=== PATIENT | female | born 1975 | race Caucasian/White ===

== ENCOUNTER 2016-12-12 11:41 | Emergency (ER) | payer SELFPAY ==
[2016-12-12 11:51] VITALS: BP 150/80; PULSE 82; TEMP 98
--- NOTE | 2016-12-12 13:00 | PDOC ---
History of Present Illness - General Chief Complaint: Bite Stated Complaint: INSECT BITE Time Seen by Provider: 12/12/16 12:04 History Source: Patient - History of Present Illness Timing/Duration: reports: other Location: reports: extremities Respiratory Risk Factors: reports: insect bite Past History - Past Medical History Allergies/Adverse Reactions: Allergies Allergy/AdvReac Type Severity Reaction Status Date / Time No Known Allergies Allergy Verified 12/12/16 11:51 Home Medications: Ambulatory Orders Multivitamins Tablet PO DAILY 12/17/11 Ibuprofen [Motrin] 600 mg PO Q6H PRN #0 tablet 12/18/11 Clindamycin [Cleocin -] 300 mg PO Q6HPO #28 capsule 12/12/16 Anemia: No Asthma: No Cancer: No Cardiac Disorders: No CVA: No COPD: No CHF: No Dementia: No Diabetes: No GI Disorders: No Disorders: No HTN: No Hypercholesterolemia: No Liver Disease: No Seizures: No Thyroid Disease: No - Surgical History Abdominal Surgery: No Appendectomy: No Cardiac Surgery: No Cholecystectomy: No Lung Surgery: No Neurologic Surgery: No Orthopedic Surgery: No - Psycho/Social/Smoking Cessation Hx Suicidal Ideation: No Smoking History: Never smoked Have you smoked in the past 12 months: No Information on smoking cessation initiated: No Hx Alcohol Use: No Drug/Substance Use Hx: No Substance Use Type: None Hx Substance Use Treatment: No Review of Systems - Review of Systems Constitutional: No: Fever, Malaise Integumentary: Yes: Erythema *Physical Exam - Vital Signs Last Vital Signs Temp Pulse Resp BP Pulse Ox 98 F 82 18 150/80 100 12/12/16 11:50 12/12/16 11:50 12/12/16 11:50 12/12/16 11:50 12/12/16 11:50 - Physical Exam General Appearance: Yes: Appropriately Dressed. No: Apparent Distress HEENT: positive: Normal Voice Neck: positive: Supple Respiratory/Chest: negative: Respiratory Distress Integumentary: positive: Dry, Warm, Other (local edema and erythema to lateral aspect of L ankle w/ fainter surrounding erythema, no sig tenderness and no increased warmth) Neurologic: positive: Fully Oriented, Alert, Normal Mood/Affect Medical Decision Making - Medical Decision Making 12/12/16 13:03 41 yo F, no sig hx, p/w pain, swelling and redness to lateral aspect of L ankle. Pt states 4 days ago while in her basement at home, felt "a sting" to area and noticed 2 "blisters" to site immediately. Also c/o itching to area. Since then has noticed "hardness" to area w/ surrounding erythema. Denies malaise, f/c. Seen by her PMD yesterday and started on amoxicillin. Also started on prednisone for possible allergic component. Here today because she is still concerned about wound though denies any worsening of symptoms See exam Local reaction to insect bite w/ possible cellulitis On amox and pred since yesterday given by PMD No systemic sxs No e/o abscess and no streaking Stable and well iban in ED Pen camila drawn around area of wound Will switch to clinda and have pt return for wound check in 48 hrs, sooner as needed *DC/Admit/Observation/Transfer Diagnosis at time of Disposition: Cellulitis Qualifiers: Site of cellulitis: extremity Site of cellulitis of extremity: lower extremity Laterality: left Qualified Code(s): L03.116 - Cellulitis of left lower limb - Discharge Dispostion Disposition: HOME - Prescriptions Prescriptions: Clindamycin [Cleocin -] 300 mg PO Q6HPO #28 capsule - Patient Instructions Printed Discharge Instructions: Cellulitis Additional Instructions: Please stop taking amoxicillin and started taking clindamycin as directed Please return in 48 hrs for wound check, sooner if redness extends beyond skin marker
--- NOTE | 2016-12-12 13:59 | PDOC ---
*Physical Exam - Vital Signs Last Vital Signs Temp Pulse Resp BP Pulse Ox 98 F 82 18 150/80 100 12/12/16 11:50 12/12/16 11:50 12/12/16 11:50 12/12/16 11:50 12/12/16 11:50 *DC/Admit/Observation/Transfer Diagnosis at time of Disposition: Cellulitis Qualifiers: Site of cellulitis: extremity Site of cellulitis of extremity: lower extremity Laterality: left Qualified Code(s): L03.116 - Cellulitis of left lower limb - Prescriptions Prescriptions: Clindamycin [Cleocin -] 300 mg PO Q6HPO #28 capsule - Referrals - Patient Instructions Printed Discharge Instructions: Cellulitis Additional Instructions: Please stop taking amoxicillin and started taking clindamycin as directed Please return in 48 hrs for wound check, sooner if redness extends beyond skin marker - Post Discharge Activity
== END 2016-12-12 13:42 | disposition home or self-care (01) ==
LOC: JERFT 11:41
DX: S90.562A Insect bite (nonvenomous), left ankle, initial encounter (principal); L08.9 Local infection of the skin and subcutaneous tissue, unspecified; L03.116 Cellulitis of left lower limb; W57.XXXA Bitten or stung by nonvenomous insect and other nonvenomous arthropods, initial encounter; Y93.89 Activity, other specified; Y92.9 Unspecified place or not applicable
CPT/HCPCS: 99281-25